=== PATIENT | female | born 1975 | race Hispanic/Latino ===

== ENCOUNTER 2017-03-22 08:55 | Inpatient (IN) | payer BC ==
[2017-03-17 10:56] LABS: BASOPHILS % 0.3 % (0.0-1.0); EOSINOPHILS # (AUTO) 0.1 (0.0-0.4); EOSINOPHILS % 1.3 % (0.0-6.0); HEMATOCRIT 40.9 % (34.2-44.1); HEMOGLOBIN 13.5 g/dL (12.0-16.0); LYMPHOCYTES # (AUTO) 2.4 (1.0-3.2); LYMPHOCYTES % 22.2 % (18.0-39.1); MEAN CORPUSCULAR HEMOGLOBIN 30.8 pg (28-32); MEAN CORPUSCULAR VOLUME 93.2 fL (81-99); MONOCYTES # (AUTO) 0.6 (0.2-0.8); MONOCYTES % 5.4 % (4.4-11.3); NEUTROPHILS # (AUTO) 7.6 (2.1-6.9); NEUTROPHILS % 70.3 % (38.7-80.0); PLATELET COUNT 350 x10e3/uL (140-360); RED BLOOD COUNT 4.39 x10e6/uL (3.6-5.1); RED CELL DISTRIBUTION WIDTH 12.2 % (11.7-14.4)
[2017-03-17 11:13] LABS: ANION GAP 13.1 mmol/L (8-16); BLOOD UREA NITROGEN 17 mg/dL (7-26); BUN/CREATININE RATIO 21 (6-25); CALCIUM 9.4 mg/dL (8.4-10.2); CARBON DIOXIDE 26 mmol/L (22-29); CHLORIDE 105 mmol/L (98-107); CREATININE, SERUM 0.82 mg/dL (0.57-1.11); EST GLOMERULAR FILTRATION RATE > 60 ML/MIN (60-); GLUCOSE 97 mg/dL (74-118); POTASSIUM 4.1 mmol/L (3.5-5.1); SODIUM 140 mmol/L (136-145)
[~2017-03-22] VITALS: Ht 157.5 cm; Wt 65.5 kg
[~2017-03-22 08:55] MED LIST: HYDROCHLOROTHIA25 MG PO; PANTOPRAZOLE SO40 MG PO
--- OUTSIDE RECORDS SUMMARY | 2017-03-22 08:57 | XMS REPORT ---
Author Author [facility] Address Unknown Phone Unavailable Care Team Providers Care Appliance Tester Name Role Phone Unavailable Unavailable Problems This patient has no known problems. Allergies, Adverse Reactions, Alerts This patient has no known allergies or adverse reactions. Medications This patient has no known medications. Encounters Start Date/Time End Date/Time Encounter Type Admission Type Attending Clinicians Care Facility Care Department Encounter ID 2016-08-04 00:00:00 2016-08-04 00:00:00 Outpatient [facility] [id number]
[2017-03-22] MEDS ORDERED: ACETAMINOPHEN 1000 MG/100 ML IV PRN (15:15)
[2017-03-22] MEDS ORDERED: KETOROLAC TROMETHAMINE 30 MG/ML VIAL IV PRN (15:15)
[2017-03-22] MEDS ORDERED: NALOXONE HCL INJ 0.4 MG/ML AMP IV PRN (15:15)
[2017-03-22] MEDS ORDERED: PROMETHAZINE HCL (IM) 25 MG/ML VIAL IV PRN (15:15)
[2017-03-22] MEDS ORDERED: HYDROMORPHONE 0.2MG/ML-SOD CHL 30ML PCA SYRINGE IV PRN (15:15)
[2017-03-22] MEDS ORDERED: PROMETHAZINE 12.5MG/ NACL 0.9% 50 ML IV PRN (15:30)
[2017-03-22] MEDS ORDERED: HYDROMORPHONE 0.2MG/ML-SOD CHL 30ML PCA SYRINGE IV ONE (15:47)
--- NOTE | 2017-03-22 15:51 | Operative Report ---
DATE OF PROCEDURE: March 22, 2017 PREOPERATIVE DIAGNOSIS: Ileostomy, status post small-bowel resection for mesenteric thrombosis and right colectomy for colon cancer. POSTOPERATIVE DIAGNOSIS: Ileostomy, status post small-bowel resection for mesenteric thrombosis and right colectomy for colon cancer. OPERATION PERFORMED: 1. Exploratory laparotomy. 2. Lysis of extensive adhesions. 3. Takedown of ileostomy with ileocolic anastomosis. IN STORE DEMONSTRATOR: Dr. Jp Ryan. ANESTHESIA: General. COMPLICATIONS: None. ESTIMATED BLOOD LOSS: 75 mL. DESCRIPTION OF PROCEDURE: With the patient lying in bed in the supine position under good general endotracheal anesthesia, the abdomen was prepped with Betadine solution and draped in the usual manner. The ileostomy site was then further draped and isolated. An elliptical incision was made around the ileostomy, carried down through the subcutaneous tissue all the way down to the fascia. The fascia was then from the terminal ileum, and the ileum was mobilized and then divided with a MATTIE 75 stapler, and the ileum was then dropped back into the abdominal cavity. Gloves and instruments were changed, and the ileostomy site was prepped out of the surgical field. An incision was made in the upper midline of the abdomen and carried down through the subcutaneous tissue and through the midline fascia. The peritoneum was opened, and the abdomen was entered. Upon entering the abdominal cavity, extensive adhesions from the patient's previous surgeries were encountered. All of these had to be slowly and carefully taken down. The small bowel was mobilized from the ligament of Treitz all the way to the area of the ostomy. There were some adhesions throughout the abdomen that were all slowly and carefully lysed. No enterotomies were made. Once this was done, the splenic flexure of the colon was then mobilized and brought medially so that the small bowel and colon would reach without any difficulty. The terminal ileum was then stapled to the distal transverse colon with another application of the MATTIE 75 stapler, and the remaining opening was closed with a TIA 60 stapler. Gloves and instruments were changed. The anastomosis was then reinforced with interrupted sutures of 3-0 silk. The mesenteric rent was closed with a running suture of 2-0 Vicryl. The abdomen was then copiously irrigated, and perfect hemostasis was ascertained. The peritoneal opening of the ileostomy was then closed with [id number] of 0 Vicryl, and the midline fascia was then closed with a running suture of number 1 PDS. All layers were irrigated on the way out. Subcutaneous tissue was approximated with 2-0 chromic, and the skin was closed with clips. The anterior rectus fascia of the ileostomy site was then closed with [id number] of number 1 Vicryl. The subcutaneous tissue was approximated with 2-0 chromic, and a quarter-inch [place] drain was then left in the wound, and the skin was closed with interrupted vertical mattress sutures of 2-0 silk and clips. A dressing was applied. The sponge, lap and needle count was correct. The patient tolerated the procedure well and returned to the recovery room in stable condition. Job#: [id number] EV
[2017-03-22] MEDS: PANTOPRAZOLE 40 MG 10ML VIAL IV SCH (16:55)
[2017-03-22] MEDS: SODIUM CHLORIDE 0.9% 250ML IRRIG IR SCH ×3 (16:55→23:35)
[2017-03-22 16:59] VITALS: BP 152/90
[2017-03-22 17:03] VITALS: BP 152/90
[2017-03-22] MEDS ORDERED: MIDAZOLAM HCL 2 MG/2 ML VIAL ONE (17:24)
[2017-03-22] MEDS ORDERED: FENTANYL CITRATE/PF 100MCG/2 ML INJ ONE (17:24)
[2017-03-22] MEDS: CEFOXITIN SOD 1 GM VIAL IV SCH (17:27)
[2017-03-22] MEDS: DEXTROSE 5%/LACTATED RINGERS 1,000 ML IV SCH (17:37)
[2017-03-22] MEDS ORDERED: CEFOXITIN 1GM/ DEXTROSE 50ML 50 ML IV SCH (18:00)
[2017-03-22] MEDS ORDERED: ACETAMINOPHEN 1000 MG/100 ML IV ONE (19:55)
[2017-03-22] MEDS ORDERED: GLYCOPYRROLATE INJ 1MG/ 5 ML SYR ONE (19:55)
[2017-03-22] MEDS ORDERED: NEOSTIGMINE 5 MG/5ML SYR ONE (19:55)
[2017-03-22] MEDS ORDERED: LIDOCAINE HCL 2% LOCAL INJ 5 ML SDV VIAL INJ ONE (19:55)
[2017-03-22] MEDS ORDERED: ROCURONIUM BROMIDE 10 MG/ML 5ML VIAL ONE (19:55)
[2017-03-22] MEDS ORDERED: ONDANSETRON HCL INJ 2 MG/ML VIAL ONE (19:55)
[2017-03-22] MEDS ORDERED: CEFOXITIN SOD 1 GM VIAL ONE (19:55)
[2017-03-22] MEDS ORDERED: SEVOFLURANE INHAL SOLN 250 ML PEN BTL ONE (19:55)
[2017-03-22] MEDS ORDERED: DEXAMETHASONE SOD PHOS INJ 4 MG/ML VIAL ONE (19:55)
[2017-03-22] MEDS ORDERED: PROPOFOL IV EMULSION 10 MG/ML 20 ML VIAL ONE (19:55)
[2017-03-22 20:34] VITALS: BP 139/90
[2017-03-23] VITALS (8 sets, daily range): BP systolic 135–158; BP diastolic 83–93
[2017-03-23] MEDS: CEFOXITIN SOD 1 GM VIAL IV SCH ×4 (00:22→17:29)
[2017-03-23] MEDS: DEXTROSE 5%/LACTATED RINGERS 1,000 ML IV SCH ×3 (01:03→20:46)
[2017-03-23] MEDS: SODIUM CHLORIDE 0.9% 250ML IRRIG IR SCH ×5 (04:30→20:48)
[2017-03-23 07:18] LABS: BASOPHILS % 0.1 % (0.0-1.0); EOSINOPHILS % 0.1 % (0.0-6.0); HEMATOCRIT 33.2 % (34.2-44.1); LYMPHOCYTES # (AUTO) 1.9 (1.0-3.2); MEAN CORPUSCULAR HEMOGLOBIN 30.7 pg (28-32); MEAN CORPUSCULAR HGB CONC 33.1 g/dL (31-35); MEAN CORPUSCULAR VOLUME 92.7 fL (81-99); MONOCYTES # (AUTO) 1.2 (0.2-0.8); MONOCYTES % 7.5 % (4.4-11.3); NEUTROPHILS # (AUTO) 12.3 (2.1-6.9); NEUTROPHILS % 79.7 % (38.7-80.0); PLATELET COUNT 299 x10e3/uL (140-360); RED BLOOD COUNT 3.58 x10e6/uL (3.6-5.1); RED CELL DISTRIBUTION WIDTH 12.4 % (11.7-14.4)
[2017-03-23 07:34] LABS: ANION GAP 11.3 mmol/L (8-16); BLOOD UREA NITROGEN 6 mg/dL (7-26); BUN/CREATININE RATIO 8 (6-25); CALCIUM 8.3 mg/dL (8.4-10.2); CARBON DIOXIDE 28 mmol/L (22-29); CHLORIDE 106 mmol/L (98-107); CREATININE, SERUM 0.79 mg/dL (0.57-1.11); EST GLOMERULAR FILTRATION RATE > 60 ML/MIN (60-); GLUCOSE 143 mg/dL (74-118); POTASSIUM 4.3 mmol/L (3.5-5.1); SODIUM 141 mmol/L (136-145)
[2017-03-23] MEDS ORDERED: CHLORASEPTIC SPRAY 177 ML BTL MM PRN (15:45)
[2017-03-23] MEDS: PANTOPRAZOLE 40 MG 10ML VIAL IV SCH (17:00)
[2017-03-23] MEDS ORDERED: HYDROMORPHONE 0.2MG/ML-SOD CHL 30ML PCA SYRINGE IV PRN (19:30)
[2017-03-24] VITALS (7 sets, daily range): BP systolic 124–151; BP diastolic 64–87
[2017-03-24] MEDS: CEFOXITIN SOD 1 GM VIAL IV SCH ×4 (00:05→17:10)
[2017-03-24] MEDS: SODIUM CHLORIDE 0.9% 250ML IRRIG IR SCH ×4 (00:05→11:15)
[2017-03-24 07:10] LABS: BASOPHILS % 0.2 % (0.0-1.0); EOSINOPHILS # (AUTO) 0.1 (0.0-0.4); EOSINOPHILS % 0.6 % (0.0-6.0); HEMATOCRIT 32.8 % (34.2-44.1); HEMOGLOBIN 10.7 g/dL (12.0-16.0); LYMPHOCYTES # (AUTO) 1.6 (1.0-3.2); LYMPHOCYTES % 11.5 % (18.0-39.1); MEAN CORPUSCULAR HEMOGLOBIN 30.7 pg (28-32); MEAN CORPUSCULAR HGB CONC 32.6 g/dL (31-35); MONOCYTES % 7.4 % (4.4-11.3); NEUTROPHILS # (AUTO) 11.1 (2.1-6.9); NEUTROPHILS % 79.9 % (38.7-80.0); PLATELET COUNT 295 x10e3/uL (140-360); RED BLOOD COUNT 3.49 x10e6/uL (3.6-5.1); RED CELL DISTRIBUTION WIDTH 12.4 % (11.7-14.4)
[2017-03-24 07:30] LABS: ANION GAP 11.5 mmol/L (8-16); BLOOD UREA NITROGEN < 5 mg/dL (7-26); CALCIUM 8.7 mg/dL (8.4-10.2); CARBON DIOXIDE 27 mmol/L (22-29); CHLORIDE 104 mmol/L (98-107); EST GLOMERULAR FILTRATION RATE > 60 ML/MIN (60-); GLUCOSE 134 mg/dL (74-118); POTASSIUM 3.5 mmol/L (3.5-5.1); SODIUM 139 mmol/L (136-145)
[2017-03-24 07:31] LABS: BUN/CREATININE RATIO 7 (6-25)
[2017-03-24] MEDS: DEXTROSE 5%/LACTATED RINGERS 1,000 ML IV SCH ×2 (09:55→17:03)
[2017-03-24] MEDS: PANTOPRAZOLE 40 MG 10ML VIAL IV SCH (17:00)
[2017-03-24] MEDS: BISACODYL 10 MG SUPP PR SCH (21:56)
[2017-03-25] VITALS (7 sets, daily range): BP systolic 106–136; BP diastolic 56–86
[2017-03-25] MEDS: CEFOXITIN SOD 1 GM VIAL IV SCH ×4 (00:06→17:26)
[2017-03-25] MEDS: DEXTROSE 5%/LACTATED RINGERS 1,000 ML IV SCH ×3 (01:22→21:02)
[2017-03-25 07:28] LABS: BASOPHILS % 0.2 % (0.0-1.0); EOSINOPHILS # (AUTO) 0.3 (0.0-0.4); EOSINOPHILS % 2.8 % (0.0-6.0); HEMATOCRIT 30.4 % (34.2-44.1); HEMOGLOBIN 9.9 g/dL (12.0-16.0); LYMPHOCYTES # (AUTO) 1.7 (1.0-3.2); LYMPHOCYTES % 17.9 % (18.0-39.1); MEAN CORPUSCULAR HEMOGLOBIN 30.9 pg (28-32); MEAN CORPUSCULAR HGB CONC 32.6 g/dL (31-35); MONOCYTES # (AUTO) 0.8 (0.2-0.8); MONOCYTES % 8.1 % (4.4-11.3); NEUTROPHILS # (AUTO) 6.5 (2.1-6.9); NEUTROPHILS % 70.6 % (38.7-80.0); PLATELET COUNT 277 x10e3/uL (140-360); RED CELL DISTRIBUTION WIDTH 12.3 % (11.7-14.4)
[2017-03-25 07:57] LABS: ANION GAP 9.4 mmol/L (8-16); BLOOD UREA NITROGEN < 5 mg/dL (7-26); BUN/CREATININE RATIO 8 (6-25); CALCIUM 8.4 mg/dL (8.4-10.2); CARBON DIOXIDE 27 mmol/L (22-29); CHLORIDE 107 mmol/L (98-107); CREATININE, SERUM 0.66 mg/dL (0.57-1.11); EST GLOMERULAR FILTRATION RATE > 60 ML/MIN (60-); GLUCOSE 112 mg/dL (74-118); POTASSIUM 3.4 mmol/L (3.5-5.1); SODIUM 140 mmol/L (136-145)
[2017-03-25] MEDS: BISACODYL 10 MG SUPP PR SCH (08:27)
[2017-03-25] MEDS: PANTOPRAZOLE 40 MG 10ML VIAL IV SCH (15:13)
[2017-03-25] MEDS ORDERED: HYDROMORPHONE 1MG/1ML INJ IV PRN (17:15)
[2017-03-25] MEDS: HYDROMORPHONE 2MG/ML INJ IV PRN (18:46)
[2017-03-26] VITALS (8 sets, daily range): BP systolic 126–137; BP diastolic 68–85
[2017-03-26] MEDS: HYDROMORPHONE 2MG/ML INJ IV PRN ×4 (00:19→21:43)
[2017-03-26] MEDS: CEFOXITIN SOD 1 GM VIAL IV SCH ×4 (06:03→17:29)
[2017-03-26] MEDS: DEXTROSE 5%/LACTATED RINGERS 1,000 ML IV SCH (14:19)
[2017-03-26] MEDS: PANTOPRAZOLE 40 MG 10ML VIAL IV SCH (15:47)
[2017-03-27] VITALS: BP 119/73
[2017-03-27] MEDS: CEFOXITIN SOD 1 GM VIAL IV SCH ×3 (00:09→11:53)
[2017-03-27] MEDS: HYDROMORPHONE 2MG/ML INJ IV PRN (03:04)
[2017-03-27] MEDS: DEXTROSE 5%/LACTATED RINGERS 1,000 ML IV SCH (03:39)
[2017-03-27 04:00] VITALS: BP 110/67
[2017-03-27 08:18] VITALS: BP 111/71
[2017-03-27] MEDS: HYDROCODONE/APAP 7.5MG-325MG 1 EA TAB PO PRN ×2 (09:50→14:12)
[2017-03-27 10:35] VITALS: BP 111/71
[2017-03-27 12:05] VITALS: BP 126/63
[2017-03-27] MEDS ORDERED: TYLENOL WITH C1 EACH PO (14:08)
== END 2017-03-27 14:45 | disposition home or self-care (01) | DRG 337 ==
LOC: OR 08:55 → MED/SURG 16:16
PROVIDERS: ADMIT Surgery; ATTEND Surgery
PROC: 0DBB0ZZ Excision of Ileum, Open Approach (ICD-10-PCS; principal; 2017-03-22 11:35)
PROC: 0DNB0ZZ Release Ileum, Open Approach (ICD-10-PCS; 2017-03-22 11:35)
DX: Z43.2 Encounter for attention to ileostomy (principal); K66.0 Peritoneal adhesions (postprocedural) (postinfection); Z85.038 Personal history of other malignant neoplasm of large intestine; Z28.21 Immunization not carried out because of patient refusal
CPT/HCPCS: 36415; 80048; 81025; 85025; 93005; 96361; J0694; J1100; J2001; J2250; J2405; J2550; J7120

== ENCOUNTER 2018-07-04 16:21 | Emergency (ER) | payer BC, SELFPAY ==
[~2018-07-04] VITALS: Ht 157.5 cm; Wt 65.3 kg
[~2018-07-04 16:21] MED LIST changes: +TYLENOL WITH C1 EACH PO
[2018-07-04] MEDS ORDERED: SODIUM CHLORIDE 0.9% 1000ML 1,000 ML IV STA (16:34)
[2018-07-04] MEDS ORDERED: KETOROLAC TROMETHAMINE 30 MG/ML VIAL IV STA (16:34)
[2018-07-04] MEDS ORDERED: METOCLOPRAMIDE HCL 10 MG/2ML VIAL IV ONE (16:45)
[2018-07-04] MEDS ORDERED: DIPHENHYDRAMINE HCL INJ 50 MG/ML VIAL IV ONE (16:45)
--- NOTE | 2018-07-04 17:10 | Diagnostic Imaging Report ---
Exam: Head CT without contrast History: Headache Comparison studies: None Technique: Axial images were obtained from the skull base to the vertex. Coronal and sagittal images reconstructed from the axial data. Dose modulation, iterative reconstruction, and/or weight based adjustment of the mA/kV was utilized to reduce the radiation dose to as low as reasonably achievable. Radiation dose: Total DLP: 921 mGy*cm. Estimated effective dose: DLP x 0.015 Intravenous contrast: None Findings: Scalp: No abnormalities. Bones: No fractures, blastic or lytic lesions. Brain sulci: Appropriate for age. Ventricles: Normal in size and configuration. No hydrocephalus. Extra-axial spaces: No masses, no fluid collection. Parenchyma: No abnormal densities. No masses, acute hemorrhage, acute or chronic vascular insults. Sellar/suprasellar region: No abnormalities. Craniocervical junction: Patent foramen magnum. No Chiari one malformation. Paranasal sinuses: The frontal sinuses, sphenoid sinuses and included ethmoid air cells and included maxillary sinuses are clear Incidental findings: Chronic inflammatory changes in the right mastoids which are partially opacified, underpneumatized and sclerotic. IMPRESSION: No acute abnormalities. Signed by: Dr. Jd Salmon M.D. on 07/04/2018 5:07 PM
[2018-07-04 18:21] VITALS: BP 145/88
== END 2018-07-04 18:25 | disposition home or self-care (01) ==
LOC: ER 16:21
DX: G44.019 Episodic cluster headache, not intractable (principal); I10 Essential (primary) hypertension
CPT/HCPCS: 70450; 99283; J1200; J1885; J2765; J7030

== ENCOUNTER → 2024-08-31 | Outpatient (REF) | payer BC ==
[~2024-08-31] MED LIST changes: +CEPHALEXIN500 MG PO; +IOPAMIDOL 370 MG/ML 100 ML INFUS..BTL INJ ONE
== END ==
LOC: CT 14:42
PROVIDERS: ATTEND Surgery
DX: R10.9 Unspecified abdominal pain (principal); K80.20 Calculus of gallbladder without cholecystitis without obstruction; R59.9 Enlarged lymph nodes, unspecified
CPT/HCPCS: 74177; 81025; Q9967